=== PATIENT | male | born 1950 | race Caucasian/White ===

== ENCOUNTER 2024-12-01 06:02 | Day surgery (SDC) | payer MEDICARE, BC ==
[~2024-12-01 06:02] MED LIST: Sodium Chloride 0.9% 10 ML Syringe FLUSH PRN; Sodium Chloride 0.9% 10 ML Syringe FLUSH SCH
[2024-12-01] MEDS: Lactated Ringers 1,000 ML IV SCH (06:15)
[2024-12-01] MEDS ORDERED: Lidocaine 2% 5 ML SDV ONE (06:46)
[2024-12-01] MEDS ORDERED: Propofol 200 MG/20 ML SDV ONE (06:47)
== END 2024-12-01 08:05 | disposition home or self-care (01) ==
LOC: JD.SDS 06:02
PROVIDERS: ATTEND Surgery
DX: Z12.11 Encounter for screening for malignant neoplasm of colon (principal); D12.2 Benign neoplasm of ascending colon; D12.3 Benign neoplasm of transverse colon; D12.5 Benign neoplasm of sigmoid colon; K57.30 Diverticulosis of large intestine without perforation or abscess without bleeding; E78.00 Pure hypercholesterolemia, unspecified; I10 Essential (primary) hypertension; Z86.0100 Personal history of colon polyps, unspecified; Z79.899 Other long term (current) drug therapy
CPT/HCPCS: 45385; 88305; J2003; J2704; J7120; 00811; 99100